=== PATIENT | male | born 1970 | race Caucasian/White ===

== ENCOUNTER 2023-04-11 14:25 | Observation (INO) ==
[2023-04-11] MEDS ORDERED: OPTIRAY 320 500ml IV ONE (14:39)
--- NOTE | 2023-04-11 14:39 | Emergency Department Note ---
Impression & Plan Stroke-like symptoms, Hypertension, Word finding difficulty, Memory loss ED Provider Note Name: CHRISTIN CASILLAS Age: 52 Sex: Male Arrives Via: Walk-In Informant: Patient, ED Provider: Jamal Álvarez MD Chief Complaint: Strokelike symptoms Impression: As per impressions above Medical Decision Making: Pleasant 52-year-old gentleman with history of GERD and gout as well as vague ocular type migraines. Driving home from [place] today said he felt like mild ocular symptoms before developing mild headache and then rapidly worsening word finding difficulty and loss of memory. This primarily started at about 1:30 PM today. He arrives to the ER just around 2:30 PM p.m. he was taken emergently from triage to CT as a stroke alert. Met him in CT. At that point he was still having some word finding/stuttering issues but no other focal neurologic deficits and memory had completely resolved. Patient understandably upset but otherwise looking well. Initial Noncon CT not clear to me. Reviewed with stroke neurologist. By time contacted back by stroke neurologist patient symptoms have fortunately completely resolved. Was starting to develop though worsening headache. After discussion with stroke neurologist reasonable to bring him to hospital for further work-up and evaluation. Patient is quite hypertensive however given concerns for stroke will allow gradual improvement rather than rapid management. Discussed possible etiologies of migraine, hypertensive emergency, stroke, TIA etc. Will bring in for MRI, migraine cocktail management and close monitoring. Patient and are comfortable with this plan. Of note I did initially order some labetalol shortly after arrival as he was quite hypertensive and was possibly to receive TNKase. However as symptoms resolved and blood pressure mildly improved held off on giving it. Triage/Nursing Notes reviewed by Me External Chart Review by me: I did review PCP visit from December of this year noting episodic palpitations. At this point during ED stay has not had any A- fib or other regular beats Differential:Migraine headache, stroke, hypertensive emergency, meningitis, sinusitis, CO exposure, ICH, SAH, infection, tumor, headache, sinus thrombosis, arterial dissection, as well as other pathologies. Vital Signs: reviewed and remarkable for hypertension Interventions: Magnesium IV, Toradol IV, Compazine IV, Benadryl IV, normal saline bolus Labs:ED labs Reviewed by me and remarkable for no significant abnormalities Imaging: CT of the head without contrast as per my informal interpretation. No evidence of intracranial hemorrhage, mass effect. Confirmed by radiologist. CT of the head and neck angiography as per radiologist no concerning stenosis or occlusions. 1 view chest x-ray as per my interpretation no evidence of pneumonia, infiltrate, effusion. EKG:As per my interpretation. Indication strokelike symptoms. Normal sinus rhythm at 67 bpm and a QTc of 431. No ectopy nor ischemia. When compared to EKG of July 03, 2011 there is no significant change Cardiac/Tele Monitoring: Cardiac Monitoring: An Order was placed for continuous cardiac monitoring. The monitor shows a rate of 60 with a normal sinus rhythm. Consults:Reviewed with Dr. [facility] service will bring in for further evaluation. Reviewed with Dr. Cisneros of [place] neurology stroke who agrees TNKase not indicated, given negative NIH does not need to video evaluate patient and suggested migraine cocktail management and bring in for further evaluation and management. Plan: Disposition:Hospitalization. Condition: Good History of Present Illness: 52-year-old male arrives for evaluation of strokelike symptoms. Patient driving around 13 p.m. when he started complaining of a mild headache and maybe some neck soreness. This seemed to resolve somewhat and then get worse. They were able to get home and noted he was having a lot of trouble finding words and was getting quite upset. Stated slurred or stuttering speech and he did not seem to be talking normally. He could not remember the date the location the president or even his son's name. At this point patient had the worst of his symptoms around 2 PM and thus brought him to ED for further evaluation. Patient arrived at roughly 2:25 PM and was taken emergently to CAT scan for stroke evaluation. Patient without any falls, trauma, head injuries. denies any risk of drug use. Denies any heavy alcohol use other than a few drinks last night. Patient without any history of stroke or head injury. Denies any blood thinner use or clotting disorders. Does not take daily aspirin. Patient does note a history of ocular type migraines where he gets some visual disturbance and then a mild headache. Over the last few weeks/months he has noticed them a bit more and even had one a few days ago. Today he thought he was starting to have 1 again when the symptoms started up. Patient does note he currently has a headache as well which is throbbing in nature. Past Medical History:Non-smoker. History of GERD, gout. 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 No chemical exposures. Home Medications:Pantoprazole, allopurinol Allergies:Penicillin Vitals:Blood Pressure: 209/121, Pulse 67, RR 22, T 36.7C, O2 98% on RA Physical Exam: GENERAL: Patient is anxious/crying appearing and in mild distress. HEAD: AT/NC RESPIRATORY: No dyspnea. Clear to auscultation and equal bilaterally. CARDIOVASCULAR: Regular rate and rhythm.No murmur appreciated. GASTROINTESTINAL: Abdomen soft, non-tender, no peritonitis. BACK: No midline tenderness, no CVA tenderness EXTREMITIES: Normal motion all extremities, no cyanosis, no edema. NEUROLOGIC: Alert and oriented. Cranial nerves intact. 5 out of 5 strength all extremities. No ataxia on examination. Patient without any memory issues. He does have some mild word finding. NIH 1 SKIN: No rash, no jaundice, no diaphoresis. PSYCH: Appropriate GCS: 15 ED Course: Times/Reassessments: Patient initially seen in CT after stroke alert paroled from triage. Stroke neurologist paged as soon as CT head completed per my informal interpretation without blood. Patient back to trauma bay where blood pressure remains elevated. Labetalol ordered. Fortunately symptoms seem to be resolving. By 3pm complete resolution symptoms. NIH 0. 3:12pm Cisneros - call back. Hospitalize with migraine cocktail management and suggested in person neurology consult as an inpatient. Many repeat evaluations throughout the patient's stay. He is doing significantly better he is calm blood pressure is starting to trend down and otherwise he looks well. Critical Care: I have personally spent 35 minutes of critical care time in the direct management of this patient. Acute strokelike symptoms requiring stroke alert consideration of TNKase and rapid evaluation and management. This was a life/limb threatening event. This 35 minutes is in excess of all separately billable procedures. Jamal Álvarez MD Past Med/Surg History Medical History Arthritis Dysphagia GERD (gastroesophageal reflux disease) Gouty arthritis History of COVID-19 Ocular migraine Surgical History H/O knee surgery History of ankle surgery Hx of LASIK Family History Father Myocardial infarction Denies family history of Ovarian cancer Prostate cancer Breast cancer Colorectal cancer Social History (Updated 12/30/22 @ 11:30 by NICOLE Riojas) Smoking Status: Never smoker Tobacco Type: Cigars Second Hand Exposure: No; Hx Alcohol Use: Yes Alcohol type: beer and wine Alcohol Intake Frequency: 2-3 x/Week Hx Substance Use: No Preferred Language: Nigerian Communication Ability: Effective Visual Impairment: No Limitations Hearing Ability: Normal Senior Controller Required: No Beliefs That Will Affect Care: None marital status: Current Living Situation: Spouse current occupational status: employed 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 How many Children do You have: 3 Feels Safe at Home: Yes Safety Concerns: Feels Safe At This Time Childhood Exposure to Second-Hand Smoke: No Diet: regular Dental Care, Regularly: Yes Physical Activity Frequency: 5-6 Times per Week Seatbelt Use: always Sunscreen Use: Yes Assistive Devices: None Allergies Allergies Allergy/AdvReac Type Severity Reaction Status Date / Time Penicillins Allergy Verified 04/11/23 16:09 Home Meds Home Medications Medication Instructions Recorded Confirmed allopurinol 300 mg tablet 300 mg PO QAM 04/11/23 04/11/23 pantoprazole 40 mg tablet,delayed 40 mg PO BID 04/11/23 04/11/23 release Previous Rx's Medication Instructions Recorded colchicine 0.6 mg tablet 0.6 mg PO BID PRN gout #30 tabs 07/23/21 sildenafil 25 mg tablet 25 mg PO DAILY PRN sexual activity 08/27/22 #20 tabs Results & Data (ED) Vital Signs Vital Signs - 24 hr 04/11/23 14:27 04/11/23 14:47 04/11/23 14:50 Temperature Temperature Source Pulse Rate 67 68 Pulse Rate [Left Finger] Respiratory Rate 18 16 Blood Pressure 209/121 H 204/119 H Blood Pressure [Left Arm] Blood Pressure Mean 150 169 Blood Pressure Mean [Left Arm] Blood Pressure Position [Left Arm] Pulse Oximetry 98 99 100 Oxygen Delivery Method Room Air Sepsis Recent Fever Within 48 Hours No Sepsis New/Unexplained Change in Mental Status Yes Sepsis Action Taken by Nursing No Action Required 04/11/23 14:50 04/11/23 14:53 04/11/23 15:15 Temperature 36.7 C Temperature Source Oral Pulse Rate 62 57 L Pulse Rate [Left Finger] 65 Respiratory Rate 12 18 16 Blood Pressure 183/136 H 183/111 H Blood Pressure [Left Arm] 183/136 H Blood Pressure Mean 149 141 Blood Pressure Mean [Left Arm] 151 Blood Pressure Position [Left Arm] Sitting Pulse Oximetry 98 99 99 Oxygen Delivery Method Sepsis Recent Fever Within 48 Hours Sepsis New/Unexplained Change in Mental Status Sepsis Action Taken by Nursing 04/11/23 15:28 Temperature Temperature Source Pulse Rate 68 Pulse Rate [Left Finger] Respiratory Rate Blood Pressure Blood Pressure [Left Arm] Blood Pressure Mean Blood Pressure Mean [Left Arm] Blood Pressure Position [Left Arm] Pulse Oximetry Oxygen Delivery Method Sepsis Recent Fever Within 48 Hours Sepsis New/Unexplained Change in Mental Status Sepsis Action Taken by Nursing Laboratory Data 04/11/23 14:48 04/11/23 14:48 Lab Results 04/11/23 04/11/23 Range/Units 14:48 14:51 WBC 9.03 (4.8-10.8) K/ul RBC 4.82 (4.70-6.10) M/uL Hgb 15.1 (14.0-18.0) g/dl POC Hgb 14.6 (14.0-18.0) g/dl Hct 43.0 (42.0-52.0) % POC Hct 43 (42-52) % MCV 89.2 (80.0-100.0) fL MCH 31.3 (25.0-34.0) pg MCHC 35.1 (32.0-36.0) g/dL RDW Std Deviation 39.6 (36.4-46.3) fL RDW Coeff of Jackelyn 12.1 (11.5-14.5) % Plt Count 300 (130-400) K/uL MPV 9.2 L (9.4-12.4) fL Immature Gran % (Auto) 0.4 % Neut % (Auto) 61.9 % Lymph % (Auto) 25.4 % [place] % (Auto) 8.2 % Eos % (Auto) 3.0 % Baso % (Auto) 1.1 % Neut # (Auto) 5.59 (1.40-6.50) K/uL Lymph # (Auto) 2.29 (1.20-3.40) K/uL [place] # (Auto) 0.74 H (0.11-0.59) K/uL Eos # (Auto) 0.27 (0.00-0.50) K/uL Baso # (Auto) 0.10 (0.00-0.20) K/uL Immature Gran # (Auto) 0.04 (0.01-0.20) K/uL PT 11.0 (9.0-12.0) Seconds INR 1.0 (0.9-1.1) APTT 29.3 (21.0-31.0) Seconds PTT Ratio 1.0 POC Sodium 136 (135-144) mmol/L Sodium 134 L (136-145) mmol/L POC Potassium 4.0 (3.3-5.0) mmol/L Potassium 3.9 (3.5-5.1) mmol/L POC Chloride 100 L (101-112) mmol/L Chloride 102 (98-107) mmol/L Carbon Dioxide 26 (21-32) mmol/L POC Total CO2 23 L (24-31) mmol/L Anion Gap 6 (3-11) POC Anion Gap 18.0 (16-25) mmol/L POC BUN 18 (7-18) mg/dl BUN 19 (6-23) mg/dl Creatinine 1.51 H (0.6-1.4) mg/dl POC Creatinine 1.5 H (0.6-1.3) mg/dl Est Cr Clr Drug Dosing 86.8 ml/min Est GFR ( Amer) 61.5 ml/min Est GFR (Non-Af Amer) 53.1 ml/min BUN/Creatinine Ratio 12.6 (10-20) Glucose 97 (70-99(Fasting)) mg/dl POC Glucose (other) 100 H (70-99) mg/dl Calcium 8.9 (8.6-10.3) mg/dl POC Ioniz Calcium Chuck 1.12 (1.12-1.32) mmol/l Magnesium 1.9 (1.7-2.4) mg/dl Total Bilirubin 0.5 (0.2-1.0) mg/dl AST 28 (13-39) U/L ALT 33 (7-52) U/L Alkaline Phosphatase 59 (34-104) U/L Troponin I High Sens 3.0 (0-20) pg/ml Total Protein 7.0 (6.0-8.3) gm/dl Albumin 3.9 (3.4-5.0) gm/dl Globulin 3.1 (2.5-4.0) gm/dl Albumin/Globulin Ratio 1.3 (0.9-2) Administered Medications Pantoprazole Sodium (Pantoprazole 40 Mg Tab) 40 mg PO BID BENITO Stop: 05/11/23 20:59 Last Admin: 04/11/23 21:26 Dose: 40 mg Documented By: ANDIE Discontinued Medications Diphenhydramine HCl (Diphenhydramine 50 Mg/Ml Vial) 50 mg IV NOW STA Stop: 04/11/23 15:22 Last Admin: 04/11/23 16:02 Dose: 50 mg Documented By: KISHORE Magnesium Sulfate/Dextrose (Magnesium Sulfate / D5w) 1 gm in 100 mls @ 100 mls/hr IV NOW STA Stop: 04/11/23 16:20 Last Infusion: 04/11/23 17:57 Dose: Infused Documented By: Admin: 04/11/23 16:09 Dose: 100 mls/hr Documented By: KISHORE Prochlorperazine (Compazine) 1 mls @ 1 mls/min IV ONE ONE Stop: 04/11/23 15:22 Last Admin: 04/11/23 16:03 Dose: 1 mls/min Documented By: KISHORE Sodium Chloride (Nss) 1,000 mls @ 999 mls/hr IV .Q1H1M ONE Stop: 04/11/23 16:21 Last Infusion: 04/11/23 17:58 Dose: Infused Documented By: Admin: 04/11/23 16:03 Dose: 999 mls/hr Documented By: KISHORE Ioversol (Optiray 320 500ml) 107 ml IV ONCE ONE Stop: 04/11/23 14:40 Last Admin: 04/11/23 14:40 Dose: 107 ml Documented By: ALY Ketorolac Tromethamine (Ketorolac Tromethamine 15 Mg/Ml Vial) 10 mg IV NOW STA Stop: 04/11/23 15:22 Last Admin: 04/11/23 16:05 Dose: 10 mg Documented By: KISHORE Labetalol HCl (Labetalol Hcl Iv 5 Mg/Ml 20ml) 10 mg IV NOW STA Stop: 04/11/23 14:49 Last Admin: 04/11/23 15:18 Dose: Not Given Documented By: ADELIA Imaging Data Radiologist's Impression: Head CT 04/11/23 14:32 CT head/brain wo con CLINICAL HISTORY: neuro deficit, acute stroke suspected Technique: Contiguous axial CT images of the head were acquired from the base of the skull to the vertex without intravenous contrast administration. Images were viewed in brain, subdural and bone windows. Automated dose lowering techniques and/or adjustment according to patient size were utilized for this exam. Comparison: None available at the time of this dictation. Findings: The ventricles, basal cisterns, and cerebral sulci are normal. There is no acute intracranial hemorrhage or evidence of acute territorial infarction. Neither mass effect, shift of the midline structures, nor abnormal extra-axial fluid collections are shown. Imaged portions of the paranasal sinuses and mastoid air cells are clear. The orbits appear normal. There are no acute fractures of the calvaria or scalp swelling. Impression: No acute intracranial hemorrhage, no evidence of acute territorial infarction or other acute intracranial disease process. ACT 112: Negative or not required by law. Electronically signed by: Pillo Larson M.D. 04/11/2023 2:51 PM Neck CTA 04/11/23 14:32 CT angio neck with con, CT angio head w con CLINICAL HISTORY: neuro deficit, acute stroke suspected TECHNIQUE: CT angiography of the head and neck was performed following intravenous administration of iodinated contrast. Coronal and sagittal MIPS were obtained from the axial data set and were submitted for review. Automated dose lowering techniques and/or adjustment according to patient size were utilized for this examination. All measurements were calculated based on NASCET criteria. CT DOSE: 483.68 mGy.cm Comparison: None available at the time of this dictation. FINDINGS: Lungs and soft tissues are unremarkable. CTA Neck: A 3 vessel aortic arch is shown. There is no significant atherosclerotic plaque in the aortic arch or the origins of the innominate, left common carotid, and left subclavian arteries. The common carotid, external carotid, cervical segments of the internal carotid arteries, and the cervical segments of the vertebral arteries are patent without hemodynamically significant stenosis. The left vertebral artery is dominant. CTA Head: The anterior and posterior cerebral circulations are patent. No hemodynamically significant stenosis, aneurysm, dissection, or arteriovenous malformation is shown. IMPRESSION: 1. No occlusion, hemodynamically significant stenosis, or dissection in the major cervical arteries. 2. No occlusion, hemodynamically significant stenosis, aneurysm, dissection, or arteriovenous malformation in the major intracranial arteries. Assessment of stenosis of the internal carotid arteries is based on NASCET criteria. ACT 112: Negative or not required by law. Electronically signed by: Pillo Larson M.D. 04/11/2023 2:55 PM Head CTA 04/11/23 14:36 CT angio neck with con, CT angio head w con CLINICAL HISTORY: neuro deficit, acute stroke suspected TECHNIQUE: CT angiography of the head and neck was performed following intravenous administration of iodinated contrast. Coronal and sagittal MIPS were obtained from the axial data set and were submitted for review. Automated dose lowering techniques and/or adjustment according to patient size were utilized for this examination. All measurements were calculated based on NASCET criteria. CT DOSE: 483.68 mGy.cm Comparison: None available at the time of this dictation. FINDINGS: Lungs and soft tissues are unremarkable. CTA Neck: A 3 vessel aortic arch is shown. There is no significant atherosclerotic plaque in the aortic arch or the origins of the innominate, left common carotid, and left subclavian arteries. The common carotid, external carotid, cervical segments of the internal carotid arteries, and the cervical segments of the vertebral arteries are patent without hemodynamically significant stenosis. The left vertebral artery is dominant. CTA Head: The anterior and posterior cerebral circulations are patent. No hemodynamically significant stenosis, aneurysm, dissection, or arteriovenous malformation is shown. IMPRESSION: 1. No occlusion, hemodynamically significant stenosis, or dissection in the major cervical arteries. 2. No occlusion, hemodynamically significant stenosis, aneurysm, dissection, or arteriovenous malformation in the major intracranial arteries. Assessment of stenosis of the internal carotid arteries is based on NASCET criteria. ACT 112: Negative or not required by law. Electronically signed by: Pillo Larson M.D. 04/11/2023 2:55 PM Discharge Plan Visit Data Chief Complaint: Neuro Symptoms/Deficit Stated Complaint: HEADACHE, MEMORY DEFICIT, SPEECH DISTURBANCE ED Provider: Jamal Álvarez Discharge Problem: Stroke-like symptoms, Hypertension, Word finding difficulty, Memory loss Patient Disposition: Admitted As Inpatient Discharge Instructions Interventions: ED Discharge Assessment Last Done: 04/11/23 17:22 Discharge Problem: Hypertension Qualifiers: Hypertension type: unspecified Qualified Code(s): I10 - Essential (primary) hypertension
[2023-04-11] MEDS ORDERED: LABETALOL HCL IV 5 MG/ML 20ML IV STA (14:48)
--- NOTE | 2023-04-11 14:54 | CT Scan Report ---
CT head/brain wo con CLINICAL HISTORY: neuro deficit, acute stroke suspected Technique: Contiguous axial CT images of the head were acquired from the base of the skull to the fareed ashley without intravenous contrast administration. Images were viewed in brain, subdural and [facility]. Automated dose lowering techniques and/or adjustment according to patient size were utilized for this exam. Comparison: None available at the time of this dictation. Findings: The ventricles, basal cisterns, and cerebral sulci are normal. There is no acute intracranial hemorrh age or evidence of acute territorial infarction. Neither mass effect, shift of the midline structures , nor abnormal extra-axial fluid collections are shown. Imaged portions of the paranasal sinuses and mastoid air cells are clear. The orbits appear normal. There are no acute fractures of the calvaria or scalp swelling. Impression: No acute intracranial hemorrhage, no evidence of acute territorial infarction or other acute intracra nial disease process. ACT 112: Negative or not required by law. Electronically signed by: Pillo Larson M.D. 04/11/2023 2:51 PM
--- NOTE | 2023-04-11 14:57 | CT Scan Report ---
CT angio neck with con, CT angio head w con CLINICAL HISTORY: neuro deficit, acute stroke suspected TECHNIQUE: CT angiography of the head and neck was performed following intravenous administration of iodinated contrast. Coronal and sagittal MIPS were obtained from the axial data set and were submitte d for review. Automated dose lowering techniques and/or adjustment according to patient size were ut ilized for this examination. All measurements were calculated based on NASCET criteria. CT DOSE: 483.68 mGy.cm Comparison: None available at the time of this dictation. FINDINGS: Lungs and soft tissues are unremarkable. CTA Neck: A 3 vessel aortic arch is shown. There is no significant atherosclerotic plaque in the aor tic arch or the origins of the innominate, left common carotid, and left subclavian arteries. The co mmon carotid, external carotid, cervical segments of the internal carotid arteries, and the cervical segments of the vertebral arteries are patent without hemodynamically significant stenosis. The left vertebral artery is dominant. CTA Head: The anterior and posterior cerebral circulations are patent. No hemodynamically significan t stenosis, aneurysm, dissection, or arteriovenous malformation is shown. IMPRESSION: 1. No occlusion, hemodynamically significant stenosis, or dissection in the major cervical arteries. 2. No occlusion, hemodynamically significant stenosis, aneurysm, dissection, or arteriovenous malfor mation in the major intracranial arteries. Assessment of stenosis of the internal carotid arteries is based on NASCET criteria. ACT 112: Negative or not required by law. Electronically signed by: Pillo Larson M.D. 04/11/2023 2:55 PM
[2023-04-11 15:00] LABS: Basophils % (auto) 1.1 %; Eosinophils # (auto) 0.27 K/uL (0.00-0.50); Hemoglobin 15.1 g/dl (14.0-18.0); Immature Granulocytes # (auto) 0.04 K/uL (0.01-0.20); Immature Granulocytes % (auto) 0.4 %; Lymphocytes # (auto) 2.29 K/uL (1.20-3.40); Lymphocytes % (auto) 25.4 %; Mean Corpuscular Hemoglobin 31.3 pg (25.0-34.0); Mean Corpuscular Hgb Conc 35.1 g/dL (32.0-36.0); Mean Corpuscular Volume 89.2 fL (80.0-100.0); Mean Platelet Volume 9.2 fL (9.4-12.4); Monocytes # (auto) 0.74 K/uL (0.11-0.59); Monocytes % (auto) 8.2 %; Neutrophils # (auto) 5.59 K/uL (1.40-6.50); Neutrophils % (auto) 61.9 %; Platelet Count 300 K/uL (130-400); RDW Coefficient of Variation 12.1 % (11.5-14.5); RDW Standard Deviation 39.6 fL (36.4-46.3); Red Blood Count 4.82 M/uL (4.70-6.10); White Blood Count 9.03 K/ul (4.8-10.8)
[2023-04-11 15:04] LABS: iSTAT Creatinine 1.5 mg/dl (0.6-1.3); iSTAT Hemoglobin 14.6 g/dl (14.0-18.0); iSTAT Ionized Calcium 1.12 mmol/l (1.12-1.32)
[2023-04-11 15:13] LABS: Partial Thromboplastin Time 29.3 Seconds (21.0-31.0)
[2023-04-11 15:21] LABS: Albumin Globulin Ratio 1.3 (0.9-2); Albumin Level 3.9 gm/dl (3.4-5.0); BUN Creatinine Ratio 12.6 (10-20); Bilirubin,Total 0.5 mg/dl (0.2-1.0); Calcium 8.9 mg/dl (8.6-10.3); Creatinine Clr Calc Pharmacy 86.8 ml/min; Est GFR (African American) 61.5 ml/min; Est GFR (Non-African American) 53.1 ml/min; Globulin 3.1 gm/dl (2.5-4.0); Magnesium 1.9 mg/dl (1.7-2.4); Potassium 3.9 mmol/L (3.5-5.1)
[2023-04-11] MEDS ORDERED: KETOROLAC TROMETHAMINE 15 MG/ML VIAL IV STA (15:21)
[2023-04-11] MEDS ORDERED: MAGNESIUM SULFATE / D5W 1 GM/100 ML BAG IV STA (15:21)
[2023-04-11] MEDS ORDERED: diphenhydrAMINE 50 MG/ML VIAL IV STA (15:21)
[2023-04-11] MEDS ORDERED: SODIUM CHLORIDE 0.9% 1,000 ML IV ONE (15:21)
[2023-04-11] MEDS ORDERED: PROCHLORPERAZINE 1 ML IV ONE (15:21)
--- NOTE | 2023-04-11 15:42 | History & Physical Report ---
Date of Service April 11, 2023 Assessment & Plan (1) Stroke-like symptoms: Plan: -Admit to the PCU on tele -Currently stable with BP down to 177/109 without antihypertensives -Patient with onset of BL upper visual field vision changes and frontal headache which began around 1230 this afternoon. Took 4 ibuprofen tabs with initial improvement of symptoms which returned along with word finding difficulties -Noted to be hypertensive at 209/121 on arrival to the ED but otherwise stable -Stroke alert was called, [facility] -Recommended admitting patient for ongoing workup of symptoms -CT head, CTA head and CTA neck were read as no focal findings -ECG shows NSR without acute ST segment or T-wave changes -At this time the patient's symptoms appear to be more likely associated with a complex migraine and/or hypertensive emergency than an acute stroke, but will continue stroke workup -Patient has been without infectious symptoms such as fever, congestion, cough, dysuria, no leukocytosis, low suspicion for infection at this time -Patient has a known history of recent ocular migraines which have been increasing in frequency recently -Patient is about to receive the migraine cocktail ordered by the ED, symptoms are already improving without intervention -Will hold aspirin for now and follow MRI; will start antiplatelet therapy if MRI necessitates -Neurology, PT/OT consults -Will obtain STAT MRI of the brain wo con and obtain TTE tomorrow -AM A1c and lipid panel -Hold any IV DVT PPX at this time until MRI is back and BP is controlled -HH diet once MRI is back -AM CBC, CMP, Mag, PT/INR (2) HTN (hypertension): Plan: -Patient is not on outpatient antihypertensive therapy -Unsure if his HTN or other symptoms started first but will continue with current workup regardless -BP currently improving without intervention at 177/109 -Will wait to treat until MRI is negative and see if migraine cocktail improves symptoms and BP (3) Duodenal ulcer: Plan: -Continue pantoprazole (4) Dyslipidemia: Plan: -Not currently on a statin -Follow am lipid panel (5) Gout: Plan: -Continue allopurinol Plan The patient was discussed with Dr. Jackson at the time of the admission History of Present Illness Chief Complaint: Stroke alert Primary Care Provider: DO Mandie Tellesnn is a 52 year old male with a PMH significant for ocular migraines, gout, dyslipidemia, and duodenal ulcer who presented to the [facility] ED on 04/11 with complaints of severe headache, word finding difficulty, and BL visual field deficits (blind spots). Per the ED staff, the patient was driving back from [place] earlier today when he started to develop a headache around 1330 today. Over the next few hours his symptoms progressed to the point that he was having difficultly remembering his son's name. He was noted to be hypertensive on arrival at 209/121 but otherwise stable. Labs were significant for a sodium of 134 but otherwise unremarkable. A stroke alert was called when the patient arrived to the ED. Ct of the head/brain wo con, CTA of the head, and CTA of the neck were read as without acute findings. The patient was evaluated by [facility] who did not recommend TNK administration. [facility] recommended admission for ongoing workup/evaluation of the patient's symptoms. They recommended holding treatment of the patient's HTN prior to MRI results. Prior to arrival the patient was given 1L NSS, a dose of Compazine, 10 mg IV toradol, 50 mg IV benadryl, and 1gm IV mag-sulfate. At the time of the exam the patient was sitting in bed in no acute distress with his sitting bedside, history was obtained from both. They confirm that they were driving back from this afternoon when he started to develop BL blind spots in the upper visual chinchilla. He states that he has been having increased frequency of ocular migraines and this is typically how they begin. He started to develop a frontal headache as well and took 4 Ibuprofen tabs. His symptoms initially started to improve but then came back and were more severe. With his increased headache he was also having difficulty with word findings, his states that he used some incorrect words while talking to her. His symptoms initially began around 1230 per the patient and his . His denies noticing any facial droop or slurred speech. The patient himself denies paresthesias, unilateral weakness, ambulatory dysfunction, lightheadedness, dizziness, chest pain, hear palpitations, SOB, abd pain, nausea, vomiting, diarrhea, dysuria, hematuria, melena, LE swelling, and recent trauma. He states that he has not had a recent gout flare since starting allopurinol. When asked about previous arrhythmias he and his explain that he was experiencing heart palpitations this past December. Dr. Pathak ordered him a Holter monitor which he wore for several weeks and was negative for arrhythmias. When asked, he denie s tobacco use and recreational drug use. He drinks socially, usually beer, and did drink Wednesday and Wednesday day. He does drink coffee and had 2 cups this am prior to driving home. Currently he still has a headache but is otherwise asymptomatic. He is a full code and would want his to make medical decisions for him if he could not make them himself. Please refer to Dr. Jackson's attestation for any changes to the treatment plan Allergies Allergy/AdvReac Type Severity Reaction Status Date / Time Penicillins Allergy Verified 04/11/23 16:09 Home Medications Medication Instructions Recorded Confirmed Type colchicine 0.6 mg tablet 0.6 mg PO BID PRN gout #30 tabs 07/23/21 04/11/23 Rx sildenafil 25 mg tablet 25 mg PO DAILY PRN sexual activity 08/27/22 04/11/23 Rx #20 tabs allopurinol 300 mg tablet 300 mg PO QAM 04/11/23 04/11/23 History pantoprazole 40 mg tablet,delayed 40 mg PO BID 04/11/23 04/11/23 History release Past Med/Surg History Medical History Arthritis Dysphagia GERD (gastroesophageal reflux disease) Gouty arthritis History of COVID-19 Ocular migraine Surgical History H/O knee surgery History of ankle surgery Hx of LASIK Family History Father Myocardial infarction Denies family history of Ovarian cancer Prostate cancer Breast cancer Colorectal cancer Social History (Updated 12/30/22 @ 11:30 by NICOLE Riojas) Smoking Status: Current some day smoker Tobacco Type: Cigars Cigarettes Per Day: Smokes about 12 cigars per year; Second Hand Exposure: No; Hx Alcohol Use: Yes Alcohol type: beer and wine Alcohol Intake Frequency: 2-3 x/Week Hx Substance Use: No Preferred Language: Swiss Communication Ability: Effective Visual Impairment: No Limitations Hearing Ability: Normal Manager Payer Required: No Beliefs That Will Affect Care: None marital status: Current Living Situation: Spouse current occupational status: employed 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 How many Children do You have: 3 Feels Safe at Home: Yes Childhood Exposure to Second-Hand Smoke: No Diet: regular Dental Care, Regularly: Yes Physical Activity Frequency: 5-6 Times per Week Seatbelt Use: always Sunscreen Use: Yes Assistive Devices: None Physical Exam Physical Exam: Physical Exam: General: In no acute distress, stated age, well-nourished, good hygiene HEENT: Normocephalic, atraumatic, no scleral icterus, pupils around round, symmetrical, and reactive to light, moist mucus membranes, trachea midline, no thyromegaly Chest/Pulm: No respiratory distress, symmetrical chest expansion, clear breath sounds throughout Cardiac: RRR, no murmurs noted Abdomen: Negative for ascites and bruising, normoactive bowel sounds, soft, non-tender to palpation throughout Musculoskeletal: Symmetrical and without signs of acute trauma, upper and lower extremities with full ROM, no atrophy, spasticity, or flaccidity Extremities: Radial, dorsalis pedis, and posterior tibial pulses are intact and symmetrical, no edema noted in the BL LE's Skin: Warm, dry, no rashes , lesions, or scars noted Neuro: Alert and oriented to person, place, month, year, and president, no focal defects, CN II-XII tested and intact, Negative BL cerebellar testing and pronator drift, no tremors noted Psych: No acute distress, calm and cooperative during the exam Results & Data Results & Data Vital Signs (Past 12 Hours) Vital Signs Temp Pulse Pulse Resp BP BP Pulse Ox 04/11/23 15:28 68 04/11/23 14:53 36.7 C 65 18 183/136 H 99 04/11/23 14:50 100 04/11/23 14:27 67 18 209/121 H 98 O2 Del Method 04/11/23 15:28 04/11/23 14:53 04/11/23 14:50 Room Air 04/11/23 14:27 Laboratory Results Abnormal lab results 04/11/23 04/11/23 Range/Units 14:48 14:51 MPV 9.2 L (9.4-12.4) fL [place] # (Auto) 0.74 H (0.11-0.59) K/uL Sodium 134 L (136-145) mmol/L POC Chloride 100 L (101-112) mmol/L POC Total CO2 23 L (24-31) mmol/L Creatinine 1.51 H (0.6-1.4) mg/dl POC Creatinine 1.5 H (0.6-1.3) mg/dl POC Glucose (other) 100 H (70-99) mg/dl Diagnostic Findings Head CT 04/11/23 14:32 CT head/brain wo con CLINICAL HISTORY: neuro deficit, acute stroke suspected Technique: Contiguous axial CT images of the head were acquired from the base of the skull to the vertex without intravenous contrast administration. Images were viewed in brain, subdural and bone windows. Automated dose lowering techniques and/or adjustment according to patient size were utilized for this exam. Comparison: None available at the time of this dictation. Findings: The ventricles, basal cisterns, and cerebral sulci are normal. There is no acute intracranial hemorrhage or evidence of acute territorial infarction. Neither mass effect, shift of the midline structures, nor abnormal extra-axial fluid collections are shown. Imaged portions of the paranasal sinuses and mastoid air cells are clear. The orbits appear normal. There are no acute fractures of the calvaria or scalp swelling. Impression: No acute intracranial hemorrhage, no evidence of acute territorial infarction or other acute intracranial disease process. ACT 112: Negative or not required by law. Electronically signed by: Pillo Larson M.D. 04/11/2023 2:51 PM Neck CTA 04/11/23 14:32 CT angio neck with con, CT angio head w con CLINICAL HISTORY: neuro deficit, acute stroke suspected TECHNIQUE: CT angiography of the head and neck was performed following intravenous administration of iodinated contrast. Coronal and sagittal MIPS were obtained from the axial data set and were submitted for review. Automated dose lowering techniques and/or adjustment according to patient size were utilized for this examination. All measurements were calculated based on NASCET criteria. CT DOSE: 483.68 mGy.cm Comparison: None available at the time of this dictation. FINDINGS: Lungs and soft tissues are unremarkable. CTA Neck: A 3 vessel aortic arch is shown. There is no significant atherosclerotic plaque in the aortic arch or the origins of the innominate, left common carotid, and left subclavian arteries. The common carotid, external carotid, cervical segments of the internal carotid arteries, and the cervical segments of the vertebral arteries are patent without hemodynamically significant stenosis. The left vertebral artery is dominant. CTA Head: The anterior and posterior cerebral circulations are patent. No hemodynamically significant stenosis, aneurysm, dissection, or arteriovenous malformation is shown. IMPRESSION: 1. No occlusion, hemodynamically significant stenosis, or dissection in the major cervical arteries. 2. No occlusion, hemodynamically significant stenosis, aneurysm, dissection, or arteriovenous malformation in the major intracranial arteries. Assessment of stenosis of the internal carotid arteries is based on NASCET criteria. ACT 112: Negative or not required by law. Electronically signed by: Pillo Larson M.D. 04/11/2023 2:55 PM Head CTA 04/11/23 14:36 CT angio neck with con, CT angio head w con CLINICAL HISTORY: neuro deficit, acute stroke suspected TECHNIQUE: CT angiography of the head and neck was performed following intravenous administration of iodinated contrast. Coronal and sagittal MIPS were obtained from the axial data set and were submitted for review. Automated dose lowering techniques and/or adjustment according to patient size were utilized for this examination. All measurements were calculated based on NASCET criteria. CT DOSE: 483.68 mGy.cm Comparison: None available at the time of this dictation. FINDINGS: Lungs and soft tissues are unremarkable. CTA Neck: A 3 vessel aortic arch is shown. There is no significant atherosclerotic plaque in the aortic arch or the origins of the innominate, left common carotid, and left subclavian arteries. The common carotid, external carotid, cervical segments of the internal carotid arteries, and the cervical segments of the vertebral arteries are patent without hemodynamically significant stenosis. The left vertebral artery is dominant. CTA Head: The anterior and posterior cerebral circulations are patent. No hemodynamically significant stenosis, aneurysm, dissection, or arteriovenous malformation is shown. IMPRESSION: 1. No occlusion, hemodynamically significant stenosis, or dissection in the major cervical arteries. 2. No occlusion, hemodynamically significant stenosis, aneurysm, dissection, or arteriovenous malformation in the major intracranial arteries. Assessment of stenosis of the internal carotid arteries is based on NASCET criteria. ACT 112: Negative or not required by law. Electronically signed by: Pillo Larson M.D. 04/11/2023 2:55 PM ECG Additional Comments: Normal sinus rhythm Normal ECG When compared with ECG of 03-JUL-2011 15:45, No significant change was found Code Status & VTE Plan Code Status Full code VTE Prophylaxis Plan VTE Prophylaxis will be ordered: Yes Supervising Physician Co-Signing Physician Notes I personally saw and examined the patient. I verified all helms points and agree with Martin Doshi PA-C with the following exceptions and/or additions: PG Care Time/CCT Total # of Minutes Spent Total Time Spent with Patient: Total time spent is greater than 50% in coordination of care (as documented) at patient's floor/unit and/or counseling patient: Coding [place] [address] INT INP/OBS CARE 2/55MIN Patient Type Established Medical Decision Making Moderate Complexity Diagnoses Stroke-like symptoms R29.90 HTN (hypertension) I10 Duodenal ulcer K26.9 Dyslipidemia E78.5 Gout M10.9
--- NOTE | 2023-04-11 17:10 | Magnetic Resonance Report ---
MR brain wo con CLINICAL HISTORY: stroke evaluation TECHNIQUE: Multiplanar and multisequence MR images of the brain were obtained without intravenous con trast. Comparison: None available at the time of this dictation. FINDINGS: No abnormal restricted diffusion is identified. A very small number of punctate white matter hyperint ensities are seen which may represent chronic microvascular ischemic disease. The ventricular system is normal in appearance. No mass is seen. There is no mass effect or midline shift. There is no evide nce of acute intraparenchymal hemorrhage. No extra axial fluid collections are seen. The corpus callo sum, pituitary gland, and cerebellar tonsils appear grossly unremarkable. Flow voids of the major intracranial arterial vessels are identified. Thickening of the sinuses is se en most prominently in the frontal, ethmoid, and maxillary sinuses. Mastoid air cells are clear. IMPRESSION: No acute abnormality and in particular no evidence of acute infarct. ACT 112: Negative or not required by law. Electronically signed by: Pilol Larson M.D. 04/11/2023 5:09 PM
[2023-04-11] MEDS ORDERED: ACETAMINOPHEN 325 MG TAB PO PRN (18:45)
[2023-04-11] MEDS: PANTOprazole 40 MG TAB PO SCH (21:26)
--- NOTE | 2023-04-11 22:39 | Electrocardiogram Report ---
Test Reason : Blood Pressure : / mmHG Vent. Rate : 067 BPM Atrial Rate : 067 BPM P-R Int : 194 ms QRS Dur : 106 ms QT Int : 408 ms P-R-T Axes : 064 007 067 degrees QTc Int : 431 ms Normal sinus rhythm Normal ECG When compared with ECG of 03-JUL-2011 15:45, No significant change was found Confirmed by Chon Wall ([id number]) on 04/11/2023 10:39:07 PM Referred By: REFERRED SELF Confirmed By:Chon Wall
[2023-04-12] MEDS: PANTOprazole 40 MG TAB PO SCH (07:53)
[2023-04-12 08:06] LABS: Basophils # (auto) 0.08 K/uL (0.00-0.20); Basophils % (auto) 1.6 %; Eosinophils # (auto) 0.24 K/uL (0.00-0.50); Eosinophils % (auto) 4.7 %; Hematocrit (blood only) 45.8 % (42.0-52.0); Hemoglobin 16.4 g/dl (14.0-18.0); Immature Granulocytes # (auto) 0.01 K/uL (0.01-0.20); Immature Granulocytes % (auto) 0.2 %; Lymphocytes # (auto) 1.78 K/uL (1.20-3.40); Lymphocytes % (auto) 35.2 %; Mean Corpuscular Hemoglobin 31.4 pg (25.0-34.0); Mean Corpuscular Hgb Conc 35.8 g/dL (32.0-36.0); Mean Corpuscular Volume 87.7 fL (80.0-100.0); Mean Platelet Volume 9.4 fL (9.4-12.4); Monocytes # (auto) 0.41 K/uL (0.11-0.59); Monocytes % (auto) 8.1 %; Neutrophils # (auto) 2.54 K/uL (1.40-6.50); Neutrophils % (auto) 50.2 %; Platelet Count 285 K/uL (130-400); RDW Coefficient of Variation 12.2 % (11.5-14.5); RDW Standard Deviation 39.4 fL (36.4-46.3); Red Blood Count 5.22 M/uL (4.70-6.10); White Blood Count 5.06 K/ul (4.8-10.8)
[2023-04-12 08:37] LABS: Prothrombin Time 10.7 Seconds (9.0-12.0)
[2023-04-12] MEDS ORDERED: allopurinoL 300 MG TAB PO SCH (09:00)
[2023-04-12 09:09] LABS: Albumin Globulin Ratio 1.3 (0.9-2); Albumin Level 4.1 gm/dl (3.4-5.0); BUN Creatinine Ratio 13.6 (10-20); Bilirubin,Total 0.8 mg/dl (0.2-1.0); Calcium 9.3 mg/dl (8.6-10.3); Creatinine Clr Calc Pharmacy 93.4 ml/min; Est GFR (African American) 67.4 ml/min; Est GFR (Non-African American) 58.2 ml/min; Globulin 3.1 gm/dl (2.5-4.0); Magnesium 2.1 mg/dl (1.7-2.4); Potassium 4.7 mmol/L (3.5-5.1); Total Protein 7.2 gm/dl (6.0-8.3)
--- NOTE | 2023-04-12 09:47 | Neurology Consultation ---
Date of Consultation April 12, 2023 Assessment & Plan (1) Word finding difficulty: (2) Memory loss: (3) Hypertension: (4) Classic migraine with aura: Plan This patient had an episode of word-finding difficulty/partial memory loss along with a somewhat classic migraine headache ( visual aura followed by headache). He is had visual aura followed by mild headache for the last 2 years but increasing frequency over the last month. MRI of the brain showed no acute stroke and he has no obvious old small-vessel ischemia (except for 1 punctate spot). MR angiography of the head neck is unremarkable as well. The patient had significant hypertension in the ER. Although improved is still somewhat high. High blood pressure can trigger vasospasm and migraine headaches. I believe the high blood pressure is his underlying main issue at this time. I would not call this episode a TIA. Recommendations: 1. Control blood pressure as you are doing, aiming for a mean arterial pressure 95-100. 2. Awaiting echocardiogram results. 3. There is no need to initiate any antiplatelet medication. 4. Increase activity as able Overall, I spent a total of 80 minutes with this case including review of records, review of MRI films, direct evaluation the patient at bedside, report generation, and discussing the case with the patient and RN at bedside and Dr. Henderson, including differential diagnosis History of Present Illness Reason for Consultation: Patient is a 52-year-old, who I was asked to see the request of Dr. Jackson, for neurologic consultation regarding acute onset speech issues and headache Requesting Physician: Dr. Jackson Attending Physician: Ike Henderson MD History of Present Illness Patient has a history of ocular type migraines, likely occurring for the last 2 years or so. He has no history of having significant migraines up until his late 40s. Being a little dehydrated or being around flashing lights will trigger these events. He will start off with spots and bands or flashing lights off to the right in both eyes lasting anywhere from 25-45 minutes. It will then resolve and he will have a bifrontal throbbing headache that last an hour or 2. There is typically no nausea or vomiting photophobia, or phonophobia. Ibuprofen typically resolves his headache. These headaches have been more frequent in the last month, with 5 or 6 episodes in the last 2 weeks The patient was driving home on April 11 when around noontime he had sudden onset of typical flashing lights to the right. That lasted the usual time and then he had a bifrontal headache. This time however the headache persisted despite ibuprofen. He then started having difficulty remembering names and having word-finding difficulty. He arrived to the emergency room 04/11 at 2:27 p.m. afebrile, with a pulse of 67, blood pressure 209/121, respiratory rate 18, O2 saturation 98%. In the emergency room he had some word-finding difficulties and stuttering but his memory was fine. Had no focal neurologic deficits, meningeal signs, or encephalopathy otherwise CBC and Chem profile were largely unremarkable although the creatinine was borderline high. CT scan of the head was unremarkable. CT angiography of the head neck were normal with no vascular anomalies or stenoses. MRI of the brain had 1 obvious punctate white matter spot of an old nature on the left and was otherwise normal. There was no acute stroke. I reviewed these films. Echocardiogram is pending. Today he is asymptomatic and has no deficits. He has been in normal sinus rhythm with the 50s. Blood pressure is 152/97. Allergies Allergy/AdvReac Type Severity Reaction Status Date / Time Penicillins Allergy Verified 04/11/23 16:09 Home Medications Medication Instructions Recorded Confirmed Type colchicine 0.6 mg tablet 0.6 mg PO BID PRN gout #30 tabs 07/23/21 04/11/23 Rx sildenafil 25 mg tablet 25 mg PO DAILY PRN sexual activity 08/27/22 04/11/23 Rx #20 tabs allopurinol 300 mg tablet 300 mg PO QAM 04/11/23 04/11/23 History pantoprazole 40 mg tablet,delayed 40 mg PO BID 04/11/23 04/11/23 History release amlodipine 2.5 mg tablet 2.5 mg PO DAILY #30 tabs 04/12/23 Rx Patient History Medical History Arthritis GERD (gastroesophageal reflux disease) Ocular migraine Dysphagia REASON FOR EGD History of COVID-19 HOME TEST + ON 02/23, TESTED + AT [facility] ON 02/25/22 > FEVER, CHILLS, ACHES, SORE THROAT > ALL RESOLVED Gouty arthritis Surgical History Hx of LASIK H/O knee surgery ACL LEFT History of ankle surgery BILAT Family History Father , age 82 of stroke and heart issues Myocardial infarction Stroke Mother , age 83 after complications of a head injury No problems noted. Denies family history of Ovarian cancer Prostate cancer Breast cancer Colorectal cancer Social History Smoking Status: Current some day smoker Tobacco Type: Cigars Cigarettes Per Day: Smokes about 12 cigars per year; Second Hand Exposure: No; Hx Alcohol Use: Yes Alcohol type: beer and wine Alcohol Intake Frequency: 2-3 x/Week Hx Substance Use: No Preferred Language: Sami Communication Ability: Effective Visual Impairment: No Limitations Hearing Ability: Normal Veterans' Coordinator Required: No Beliefs That Will Affect Care: None marital status: Current Living Situation: Spouse current occupational status: employed 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 How many Children do You have: 3 Feels Safe at Home: Yes Childhood Exposure to Second-Hand Smoke: No Diet: regular Dental Care, Regularly: Yes Physical Activity Frequency: 5-6 Times per Week Seatbelt Use: always Sunscreen Use: Yes Assistive Devices: None Review of Systems Constitutional: no fever, no fatigue and no weakness Eyes: no diplopia, no eye pain and no worsening vision Ear, Nose, Mouth, Throat: no ear pain, no tinnitus, no hearing loss, no dizziness, no snoring, no hoarseness and no dysphagia Respiratory: no cough and no dyspnea Cardiovascular: no chest pain, no palpitations and no lightheadedness Gastrointestinal: no abdominal pain, no nausea and no vomiting Musculoskeletal: no back pain, no neck pain, no radicular pain, no joint pain and no myalgia Integumentary: no rash and no lesions Neurologic: no gait abnormality, no localized weakness, no generalized weakness, no tingling, no numbness, no tremor(s), no abnormal movements, no headache(s), no abnormal speech, no confusion and no memory loss Psychiatric: no depression, no irritability, no anxiety, no difficulty concentrating, no confusion and no hallucinations Endocrine: no fatigue and no flushing Hematologic / Lymphatic: no easy bleeding and no easy bruising Allergy / Immunological: no urticaria and no problem reported Exam (Neuro) Physical Exam: The patient is right-handed. The patient is awake, alert, and attentive. Speech is normal without any aphasia or dysarthria. The patient can name objects, repeat phrases, and has normal spontaneous speech. Mentation and thought processes are intact, with orientation to person, place and time, and normal fund of knowledge. Attention and concentration are normal. Mood and affect are normal and appropriate. General appearance and grooming are normal. Short and long-term memory are intact. Pupils are 4 mm bilaterally and reactive to light. Extraocular eye muscles are intact without nystagmus. Visual acuity and visual chinchilla seem normal grossly to confrontation. There are no deficits to sensation in the face in all 3 distributions of the fifth cranial nerve bilaterally. Corneal reflexes are positive bilaterally. Facial strength and symmetry was normal bilaterally. Hearing seems normal bilaterally. Palate moves well without asymmetry. There is normal sternocleidomastoid and trapezius (shoulder shrug) strength bilaterally. Tongue is midline with good strength bilaterally. Neck has a full range of motion without discomfort. There are no cervical bruits bilaterally. There are no cranial or ocular bruits. Heart is without murmur. There is a regular rhythm and rate. Cervical, thoracic, and lumbar spine are nontender to palpation. Gait is narrow based, with good arm swing, turns, and stance. Balance is normal eyes open or closed. With outstretched arms there is no drift. There are no resting, postural, or action tremors. There is no ataxia with finger to nose testing. There is good facility in the hands. No other abnormal involuntary movements are noted. Motor strength is 5/5 diffusely in the arms bilaterally including deltoids, biceps, triceps, brachioradialis, wrist flexors and extensors, pantograph i engraver, and intrinsic hand muscles. Motor strength is 5/5 diffusely in the legs bilaterally including hip flexors, quadriceps, hamstrings, gastrocnemius, tibialis anterior, tibialis posterior, and Peroneii muscles. Toe extensors are normal and there is good bulk in the extensor digitorum brevis muscles bilaterally. The limbs have good tone without rigidity or spasticity. There is no atrophy noted in the muscles. Muscle bulk is normal, there is no tenderness to palpation, no myotonia to percussion, and no fasciculations seen. Sensory examination is intact to touch and pin throughout all 4 limbs diffusely. Reflexes are 2/4 in the biceps, triceps, brachioradialis, quadriceps, and Achilles tendons bilaterally. There is no clonus bilaterally. Toes are downgoing with plantar stimulation bilaterally. Peripheral pulses are present and of normal quality distally in all 4 limbs. There is no peripheral edema noted in the limbs. Results & Data Vital Signs (Past 12 Hours) Vital Signs Temp Pulse Pulse Resp BP Pulse Ox O2 Del Method 04/12/23 08:00 36.8 C 54 L 18 152/97 H 97 Room Air 04/12/23 03:29 36.5 C 49 L 16 126/73 97 Room Air 04/12/23 00:51 50 L 04/11/23 22:56 36.5 C 60 18 133/79 97 Room Air PG Care Time/CCT Total # of Minutes Spent Total Time Spent with Patient: Total time spent is greater than 50% in coordination of care (as documented) at patient's floor/unit and/or counseling patient: Coding Level of Care Code 37573 IN/OBS CONSULT LVL 5,80M Diagnoses Word finding difficulty R47.89 Memory loss R41.3 Hypertension I10 Hypertension type: unspecified Classic migraine with aura G43.109 Time Spent (min) 80 (3) Hypertension Hypertension type: unspecified Qualified Code(s): I10 - Essential (primary) hypertension
--- NOTE | 2023-04-12 10:41 | XCELERA ---
[id number] [id number]
--- NOTE | 2023-04-12 11:13 | Discharge Summary ---
Date of Service April 12, 2023 Admission HPI Per Admitting Provider Gulshan is a 52 year old male with a PMH significant for ocular migraines, gout, dyslipidemia, and duodenal ulcer who presented to the [facility] ED on 04/11 with complaints of severe headache, word finding difficulty, and BL visual field deficits (blind spots). Per the ED staff, the patient was driving back from [place] earlier today when he started to develop a headache around 1330 today. Over the next few hours his symptoms progressed to the point that he was having difficultly remembering his son's name. He was noted to be hypertensive on arrival at 209/121 but otherwise stable. Labs were significant for a sodium of 134 but otherwise unremarkable. A stroke alert was called when the patient arrived to the ED. Ct of the head/brain wo con, CTA of the head, and CTA of the neck were read as without acute findings. The patient was evaluated by [facility] who did not recommend TNK administration. [facility] recommended admission for ongoing workup/evaluation of the patient's symptoms. They recommended holding treatment of the patient's HTN prior to MRI results. Prior to arrival the patient was given 1L NSS, a dose of Compazine, 10 mg IV toradol, 50 mg IV benadryl, and 1gm IV mag-sulfate. At the time of the exam the patient was sitting in bed in no acute distress with his sitting bedside, history was obtained from both. They confirm that they were driving back from this afternoon when he started to develop BL blind spots in the upper visual chinchilla. He states that he has been having increased frequency of ocular migraines and this is typically how they begin. He started to develop a frontal headache as well and took 4 Ibuprofen tabs. His symptoms initially started to improve but then came back and were more severe. With his increased headache he was also having difficulty with word findings, his states that he used some incorrect words while talking to her. His symptoms initially began around 1230 per the patient and his . His denies noticing any facial droop or slurred speech. The patient himself denies paresthesias, unilateral weakness, ambulatory dysfunction, lightheadedness, dizziness, chest pain, hear palpitations, SOB, abd pain, nausea, vomiting, diarrhea, dysuria, hematuria, melena, LE swelling, and recent trauma. He states that he has not had a recent gout flare since starting allopurinol. When asked about previous arrhythmias he and his explain that he was experiencing heart palpitations this past December. Dr. Pathak ordered him a Holter monitor which he wore for several weeks and was negative for arrhythmias. When asked, he denies tobacco use and recreational drug use. He drinks socially, usually beer, and did drink Wednesday and Wednesday day. He does drink coffee and had 2 cups this am prior to driving home. Currently he still has a headache but is otherwise asymptomatic. He is a full code and would want his to make medical decisions for him if he could not make them himself. Please refer to Dr. Jackson's attestation for any changes to the treatment plan Admission Exam Per Admitting Provider General: In no acute distress, stated age, well-nourished, good hygiene HEENT: Normocephalic, atraumatic, no scleral icterus, pupils around round, symmetrical, and reactive to light, moist mucus membranes, trachea midline, no thyromegaly Chest/Pulm: No respiratory distress, symmetrical chest expansion, clear breath sounds throughout Cardiac: RRR, no murmurs noted Abdomen: Negative for ascites and bruising, normoactive bowel sounds, soft, non- tender to palpation throughout Musculoskeletal: Symmetrical and without signs of acute trauma, upper and lower extremities with full ROM, no atrophy, spasticity, or flaccidity Extremities: Radial, dorsalis pedis, and posterior tibial pulses are intact and symmetrical, no edema noted in the BL LE's Skin: Warm, dry, no rashes , lesions, or scars noted Neuro: Alert and oriented to person, place, month, year, and president, no focal defects, CN II-XII tested and intact, Negative BL cerebellar testing and pronator drift, no tremors noted Psych: No acute distress, calm and cooperative during the exam Principal Diagnosis 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 Normal effort Abdomen: Soft/nontender/nondistended. No hepatosplenomegaly Extremities: No clubbing/cyanosis. No edema Behavior: Appropriate, cooperative Discharge Data Allergies Allergy/AdvReac Type Severity Reaction Status Date / Time Penicillins Allergy Verified 04/11/23 16:09 Consultations 04/11/23 16:29 Consult Neurology Routine Ordered Studies 04/11/23 14:32 CT angio neck with con Stat CT head/brain wo con Stat 04/11/23 14:36 CT angio head w con Stat 04/11/23 15:59 MRI Brain [MR brain wo con] Stat Hospital Course (1) Stroke-like symptoms: patient was hypertensive on arrival to the emergency room. Brain imaging were all negative TTE negative Neurology on board. Per neurology, this is most likely hypertension induced cerebral vasospasm leading to migraine. Patient is back to his baseline now. Completely asymptomatic. Wishes to go home. Blood pressure well controlled we will start him on low-dose amlodipine and advised him to follow-up with PCP in 1 week for good blood pressure control. (2) HTN (hypertension): -Patient is not on outpatient antihypertensive therapy -Unsure if his HTN or other symptoms started first but will continue with current workup regardless -BP currently Improved neurology recommended blood pressure control Started the patient on amlodipine 2.5 mg Follow-up with PCP in 1 week (3) Duodenal ulcer: -Continue pantoprazole (4) Dyslipidemia: -Not currently on a statin -Follow am lipid panel (5) Gout: -Continue allopurinol Total Time Total Time Spent Total Time Spent (In Minutes): 35 Discharge Plan Discharge Items Patient Disposition: Home - Self-Care Reason For Visit: STROKE ALERT Discharge Diagnosis: 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 - Advised that you are being discharged on a BP medication called Amlodipine. - Advised that you will need good BP control. Pending Studies at Discharge: No Stand-Alone Forms: My [facility] [employer] Medications and DC Order Prescriptions: New amlodipine 2.5 mg tablet 2.5 mg PO DAILY Qty: 30 0RF Continued colchicine 0.6 mg tablet 0.6 mg PO BID PRN (Reason: gout) Qty: 30 2RF sildenafil 25 mg tablet 25 mg PO DAILY PRN (Reason: sexual activity) Qty: 20 0RF Rx Instructions: administer 30 minutes to 4 hours before activity pantoprazole 40 mg tablet,delayed release (DR/EC) 40 mg PO BID Rx Instructions: TAKE 1 TABLET BY MOUTH TWICE DAILY allopurinol 300 mg tablet 300 mg PO QAM Rx Instructions: TAKE 1 TABLET BY MOUTH ONCE DAILY Discharge Orders: Discharge Order (Routine); Ordered 04/12/23 Ordered By: Ike Henderson Admission Data Admit Date/Time: 04/11/23 15:47 Attending Provider: Ike Henderson Admit Provider: Terrence Jackson Primary Care Provider: Melecio Pathak Other Providers: Nathan Knapp Other Interventions: Discharge Summary Assessment (RN) Last Done: 04/12/23 11:21 Coding Level of Care Code 09416 INP/OBS DISCH >30 MIN Diagnoses Stroke-like symptoms R29.90 HTN (hypertension) I10 Duodenal ulcer K26.9 Dyslipidemia E78.5 Gout M10.9
== END 2023-04-12 12:15 | disposition home or self-care (01) ==
LOC: ED 14:25 → SUATTDRO 15:47 → INTOOBSV 15:47 → 2S 15:47